=== PATIENT | female | born 1980 | race Hispanic/Latino ===

== ENCOUNTER 2023-01-09 14:47 | Outpatient (CLI) | payer BC | END 2023-01-09 14:48 | disposition home or self-care (01) | LOC: CSHMAMMO 14:47 | PROVIDERS: ATTEND Obstetrics & Gynecology | DX: Z12.31 Encounter for screening mammogram for malignant neoplasm of breast (principal); N64.89 Other specified disorders of breast; Z80.3 Family history of malignant neoplasm of breast | CPT/HCPCS: 77063; 77067 ==

== ENCOUNTER 2023-01-20 07:57 | Outpatient (CLI) | payer BC | END 2023-01-20 07:58 | disposition home or self-care (01) | LOC: CSHULT 07:57 | PROVIDERS: ATTEND Obstetrics & Gynecology | DX: N63.20 Unspecified lump in the left breast, unspecified quadrant (principal) ==

== ENCOUNTER 2025-10-01 09:29 | Day surgery (SDC) | payer BC ==
[2025-09-29 15:52] VITALS: BMI 35.9
[2025-09-29 16:17] LABS: Hematocrit 38.9 % (34.9-44.5); Hemoglobin 12.7 g/dL (12.0-15.5); Mean Corpuscular Hemoglobin 29.1 pg (27.0-33.0); Mean Corpuscular Volume 89.0 fL (81.6-98.3); Platelet Count 216 10x3/uL (150-450); Red Blood Cell (RBC) Count 4.37 10x6/uL (3.90-5.03); White Blood Cell (WBC) Count 7.18 10x3/uL (3.5-10.5)
[2025-09-29 16:27] LABS: BHCG - Serum Negative (NEGATIVE); Pregs Control Background? CLEAR/WHITE (CLR/WHITE); Pregs Control Bar Appear? YES (CONTROL BAR)
[2025-10-01] MEDS ORDERED: Gabapentin 300 MG CAP ONE (09:46)
[2025-10-01] MEDS ORDERED: Ondansetron PF 4 MG/2 ML Vial ONE ×2 (10:55→13:07)
[2025-10-01] MEDS ORDERED: PROPOFOL 20 ML ONE (10:56)
[2025-10-01] MEDS ORDERED: CEFAZOLIN 2 GM VIAL ONE (11:16)
[2025-10-01] MEDS ORDERED: HYDROcodone/Acetaminophen 5/325 mg Tablet ONE (13:31)
== END 2025-10-01 14:15 | disposition home or self-care (01) ==
LOC: CSHSDC 09:29
PROVIDERS: ATTEND Obstetrics & Gynecology
PROC: 0U5B8ZZ Destruction of Endometrium, Via Natural or Artificial Opening Endoscopic (ICD-10-PCS; principal; 2025-10-01)
DX: N85.8 Other specified noninflammatory disorders of uterus (principal); D25.1 Intramural leiomyoma of uterus; Z98.51 Tubal ligation status; Z88.1 Allergy status to other antibiotic agents
CPT/HCPCS: 36415; 84703; 85027; 86850; 86900; 86901; 88305; J1100; J2250; J2405; J2704; J3010